=== PATIENT | male | born 1945 | race Caucasian/White ===

== ENCOUNTER 2025-02-20 09:47 | Inpatient (IN) | payer MEDICARE, OTHER, SELFPAY ==
--- NOTE | 2025-02-01 15:28 | CM ---
Demographics: Confirmed
Living situation: lives two story home with
Support Person Post Operatively:
History of
VN: No
SNF: No
Outpatient: Encouraged patient to make appointment for 02/22 at [facility] Outpatient PT
Has patient purchased required equipment: Yes, walker, cane
PCP: confirmed
Pharmacy: [facility] pharmacy
Post Operative Discharge Plan: Home with , Outpatient PT at [facility].
[2025-02-08 13:56] VITALS: BMI 32.3
[2025-02-08 14:14] LABS: Hematocrit 34.9 % (39.0-52.0); Hemoglobin 11.9 g/dL (13.0-18.0); Mean Corp Hgb Conc. 34.1 g/dL (33.0-37.0); Mean Corpuscular Volume 103.3 fL (80.0-94.0); Platelet Count 237 10^3/uL (130-400); Red Cell Dist. Width 12.1 % (11.5-14.5)
[2025-02-08 14:46] LABS: ALT (SGPT) 22 U/L (0-50); AST (SGOT) 24 U/L (17-59); Albumin 4.1 g/dl (3.5-5.0); Alkaline Phosphatase 88 U/L (38-126); Blood Urea Nitrogen 17 mg/dl (9-20); Calcium 10.0 mg/dl (8.4-10.2); Carbon Dioxide 27 mmol/L (22-30); Chloride 105 mmol/L (98-107); Estimated Creatinine Clearance 78 ml/min; Glucose 60 mg/dl (70-99); Potassium 4.3 mmol/L (3.5-5.1); Sodium 140 mmol/L (135-145); Total Protein 6.9 g/dl (6.3-8.2); eGFR > 60.00
[2025-02-08 18:18] VITALS: BMI 32.3
[2025-02-09 09:39] LABS: Glycohemoglobin (HgbA1c) 5.6 % (4.0-5.9)
[2025-02-20] VITALS (11 sets, daily range): BP systolic 97–146; BP diastolic 51–77; PULSE 59–69; O2SAT 98
--- NOTE | 2025-02-20 07:42 | W.PN.UPDATE ---
Update Note
Progress Note Update
R hip OA s/p R ELSIE w/ Dr Huff 02/20/25
DVT prophylaxis - ASA, b/l venous foot pumps
HTN - + parameters - monitor BP
Bifascicular block and PACs, asymptomatic - monitor on tele
JANINA, compliant with CPAP (setting 10) - monitor O2
- IS
- Consider Decadron to aid in lung perfusion
- Continue CPAP HS
NIDDM, A1c 5.6 - monitor BS
- Resume home meds
- Add SSI AC, low dose Lantus HS to accommodate for potential post-surgical BS elevations during admission
- Diabetic, carb controlled diet
- Would benefit from prophylactic abx upon d/c
GERD - add Pepcid HS
BPH - monitor voids
- Continue home Flomax. Will add additional prn dose if urinary retention presents
- Bladder scan/straight cath prn
Mild anemia - non-invasive hgb in AM
HLD
Mild /AR
Colon polyps
Nephrolithiasis
Vertigo
Lumbar degenerative disc disease
Prostate cancer, status post robotic prostatectomy, 2008, and radiation 2018
Obesity, BMI 32.3
Remote history of tobacco abuse
[2025-02-20] MEDS: CELEBREX 200 MG PO (10:04)
[2025-02-20] MEDS: TYLENOL 650 MG PO (10:05)
[2025-02-20 10:17] LABS: Glucose - Point of Care 121 mg/dl (70-99)
[2025-02-20] MEDS: BACTROBAN NASAL 1 GRAM NASAL (10:18)
[2025-02-20] MEDS: NORMOSOL-R/PLASMALYTE-A 1000 IV ×2 (10:18→15:18)
[2025-02-20] MEDS: TYLENOL #3 1 TABLET PO ×2 (13:47→17:27)
--- NOTE | 2025-02-20 14:30 | PTCARENOTE ---
Patient admitted from pacu post right total hip arthroplasty.The patient is alert and oriented.They say their pain is a 3 out of 10.Vital signs are stable.the Mepilex dressing is intact without drainage.Both physical therapy and occupational therapy
are in the room starting to work with the patient.The patient is in his bed with the call hamilton in place.
[2025-02-20] MEDS: ZESTRIL PO (15:19)
[2025-02-20 16:51] LABS: Glucose - Point of Care 112 mg/dl (70-99)
[2025-02-20] MEDS: ANCEF 5 IV (17:21)
[2025-02-20] MEDS: ACTOS 15 MG PO (17:21)
[2025-02-20] MEDS: ASPIRIN 325 MG PO (17:28)
--- NOTE | 2025-02-20 18:15 | OR.RPT ---
Operative Report
Operative Report
Orthopaedic Surgery Operative Note
DATE OF OPERATION: 02/20/2025
PREOPERATIVE DIAGNOSES: Osteoarthritis, right hip
POSTOPERATIVE DIAGNOSES: Same
OPERATION PERFORMED: Right total hip arthroplasty.
SURGEON: Fran Huff MD
SOLAR MANAGER: Bruno Cordero who assisted with patient positioning and retraction
ANESTHESIA: Spinal
COMPLICATIONS: None.
ESTIMATED BLOOD LOSS: 50 mL.
DRAINS: None
SPECIMEN: None
FINDINGS: Advanced articular cartilage wear on the femoral head and acetabulum.
IMPLANTS:
Biomet G7 Acetabular Shell, cluster hole, size 52
Biomet G7 Highly Crosslinked PE Liner, neutral
Guzman M/L Taper femoral stem, size 13.5 with standard neck length and extended
Biolox Ceramic Head, size 36mm +0
INDICATIONS: The patient presented to my office with debilitating right hip pain due to osteoarthritis. We reviewed the natural history of this problem, as well as the risks, benefits, and alternatives of various treatment options. The patient
exhausted all nonoperative treatment options and wished to proceed with hip replacement surgery. The patient understood the risks which included, but were not limited to, bleeding, infection, failure to relieve pain, more pain than preop, damage to
blood vessels and nerves, need for reoperation, mechanical failure of the implants, wound healing problems, stiffness, instability, blood clot, pulmonary embolism, myocardial infarction, pneumonia, arrhythmia, CVA, and . The patient accepted
these risks and wished to proceed. All questions were answered, and informed consent was obtained.
PROCEDURE IN DETAIL: The patient was identified in the preoperative holding area. The right hip was identified as the operative site. The patient was taken in the operating room and transferred to the operative table. Spinal anesthesia was
performed. IV antibiotics and tranexamic acid were administered. The patient was placed in the lateral position with Stulberg hip positioners. Axillary roll was placed. The down leg was well padded. All bony prominences were well padded. The
operative limb was prepped and draped in the usual sterile fashion.
Time out was performed. A posterolateral approach to the hip was used. The skin incision was centered over the greater trochanter. This was taken down sharply through subcutaneous tissues. Meticulous hemostasis was achieved throughout the case with
electrocautery. We split the fascia jennyfer in line with skin incision. I split the gluteus lance bluntly. We cauterized all crossing vessels as we split it. I palpated the sciatic nerve and made sure it was well posterior in the operative field. It
was protected throughout the case.
I performed a partial bursectomy to identify the short external rotators. The gluteus medius and minimus were identified and retracted anteriorly. I incised the piriformis tendon and conjoint tendon at their insertions. These were tagged for later
repair. I then performed a trapezoidal capsulotomy. The edges were tagged for later repair. I referenced the cut edge of the capsular flap to 2 fixed points on the greater trochanter for assistance with recreation of limb length and offset. I then
dislocated the hip posteriorly. I performed a femoral neck osteotomy approximately 5 mm above the lesser trochanter, as per preoperative templating. The femoral head measured 46 mm in outer diameter. The distance between neck cut and the center of
femoral head was 35mm. I placed a curve hohmann retractor over the anterior lip of the acetabulum between the labrum and the anterior hip capsule. A second retractor was placed inferiorly just distal to the transverse acetabular ligament.
Circumferential view of the acetabulum was achieved. I incised the labrum and pulvinar with electrocautery. I started with a 47 mm reamer and reamed down to the medial wall. I then sequentially reamed up to a 51mm reamer. This gave a nice bed of
bleeding bone with excellent column support anteriorly and posteriorly. I impacted the acetabular shell in approximately 40 degrees of abduction and 20 degrees of anteversion. I matched the anteversion of the transverse acetabular ligament. I also
made sure that the anterior rim of the socket was not proud of the anterior wall to minimize the chance of iliopsoas tendinitis. I confirmed the cup was well-seated. I then impacted a neutral liner and confirmed it was well seated with the locking
mechanism.
On the femoral side, I use a box osteotome to open the proximal starting point. I found the canal with a Charnley awl and a lateralizing reamer. I then used the Guzman M/L taper broaches sequentially to prepare the femoral canal. The size 13.5 came
to a stop at the desired level and had excellent axial and rotational stability. We trialed with a trial ball head. The hip was taken through a complete range of motion. It was noted to be stable in extension without impingement. It was stable in
the position of sleep and in flexion with internal rotation. The limb length and offset were checked compared to the capsular flap and was appropriate. The measured length between the neck cut and center of the trial femoral head was 37.5mm.
I removed the trials. I impacted the femoral implant to match the [place] version. It had excellent axial and rotational stability. Trial ball head was placed, and I reduced the hip and took the hip through range of motion. There was no impingement
in external rotation and extension. Position of sleep was stable. At 90 degrees of flexion and slight adduction, the hip could be internally rotated to 90 degrees with no subluxation. I palpated the sciatic nerve, which was tension free and
unharmed. Based on our capsular flap measurement, we had restored the offset and leg length. The trial ball head was removed, and the final ball head was impacted onto a clean and dry Macias taper. The hip was reduced.
A dilute betadine soak was performed for approximately 3 minutes, and then the hip was copiously irrigated. I repaired the capsule, piriformis, and conjoint tendon with #2 Ethibond to drill holes in the greater trochanter. Local anesthetic was
injected. The fascia jennyfer was closed with #1 PDS in running fashion. The subcutaneous tissues were closed with 2-0 monofilament in running fashion. The skin was reapproximated with 3-0 monofilament subcuticular suture. I placed a skin glue dressing
followed by a Mepilex Ag dressing. The patient awoke from anesthesia without difficulty. Sponge and instrument counts were correct x2 at the end of the case.
Naresh Huff MD
[2025-02-20] MEDS: COLACE 100 MG PO (20:50)
[2025-02-20] MEDS: FLOMAX 0.4 MG PO (20:50)
[2025-02-20] MEDS: BACTROBAN 2% OINTMENT 1 APPLIC NASAL (20:50)
[2025-02-20] MEDS: SENOKOT 17.2 MG PO (20:50)
[2025-02-20] MEDS: FLORASTOR 250 MG PO (20:50)
[2025-02-20] MEDS: PEPCID 20 MG PO (20:51)
[2025-02-20] MEDS: TORADOL 10 MG IV (20:51)
[2025-02-20] MEDS: NEURONTIN 300 MG PO (20:51)
[2025-02-20] MEDS: CASODEX 50 MG PO (20:51)
[2025-02-20 21:03] LABS: Glucose - Point of Care 188 mg/dl (70-99)
[2025-02-20] MEDS: TYLENOL #3 2 TABLET PO (21:54)
[2025-02-21] MEDS: ANCEF 5 IV (02:08)
[2025-02-21 03:20] VITALS: BP 110/56
[2025-02-21 07:33] LABS: Glucose - Point of Care 103 mg/dl (70-99)
[2025-02-21 07:40] VITALS: BP 113/59
[2025-02-21] MEDS: ASPIRIN 325 MG PO (09:18)
[2025-02-21] MEDS: CELEBREX 200 MG PO (09:18)
[2025-02-21] MEDS: SENOKOT 17.2 MG PO (09:18)
[2025-02-21] MEDS: LIDOCAINE 4% PATCH 2 PATCH TOPICAL (09:19)
[2025-02-21] MEDS: GLUCOTROL 10 MG PO (09:19)
[2025-02-21] MEDS: ACTOS 15 MG PO (09:19)
[2025-02-21] MEDS: FLORASTOR 250 MG PO (09:19)
[2025-02-21] MEDS: BACTROBAN 2% OINTMENT 1 APPLIC NASAL (09:19)
[2025-02-21] MEDS: COLACE 100 MG PO (09:19)
[2025-02-21] MEDS: ZESTRIL 5 MG PO (09:20)
[2025-02-21] MEDS: TYLENOL #3 1 TABLET PO (09:28)
--- NOTE | 2025-02-21 09:30 | W.PN.ORTHO ---
Today's Communication / Plan
-
Await PT and OT recs.
D/c later today if remaining clinically stable.
Assessment
.
Distal Motor Intact: Yes
Dressing:
Clean, dry and intact.
Assessment:
R hip OA s/p Nai ZIMMERMAN w/ Dr Huff 02/20/25
DVT prophylaxis - ASA, b/l venous foot pumps
HTN - + parameters - BPs overall stable
Bifascicular block and PACs, asymptomatic - rhythm stable on tele
JANINA, compliant with CPAP (setting 10) - O2 stable on RA by POD 1
- IS
- Consider Decadron to aid in lung perfusion
- Continue CPAP HS
NIDDM, A1c 5.6 - BS readings initially elevated 2* surgical stress, IV Decadron in OR; however, BS readings are showing improvement w/ measures below
- Resumed home meds
- Added SSI AC, low dose Lantus HS to accommodate for potential post-surgical BS elevations during admission
- Diabetic, carb controlled diet
- Would benefit from prophylactic abx upon d/c
GERD - added Pepcid HS
BPH - voiding appropriately by POD 1
- Continue home Flomax. Will add additional prn dose if urinary retention presents
- Bladder scan/straight cath prn
Mild pre-op anemia - non-invasive hgb 12.9 POD 1
HLD
Mild /AR
Colon polyps
Nephrolithiasis
Vertigo
Lumbar degenerative disc disease
Prostate cancer, status post robotic prostatectomy, 2008, and radiation 2018
Obesity, BMI 32.3
Remote history of tobacco abuse
Plan
.
Surgery / Date: Nai delarosa/ Dr Huff 02/20/25
DVT Prophylaxis: Aspirin
Activity:
Out of bed.
PT/OT
Discharge Plan: Home w/ Outpatient PT
Subjective
.
.:
Patient resting comfortably in his chair.
R hip pain well controlled w/ current pain meds.
Denies any new significant complaints.
Eager for potential d/c today.
Vital Signs and Labs
.
Vital Signs and Labs:
Lab Results
02/08/25 12:19
02/08/25 12:19
Temp Pulse Resp BP Pulse Ox
98 F 79 18 129/59 95
02/21/25 07:40 02/21/25 09:20 02/21/25 07:40 02/21/25 09:20 02/21/25 07:40
Non-invasive Hgb result: 12.9
Physical Exam
-
HEENT: No pallor, cyanosis, or jaundice. Throat clear.
NECK: Supple. No JVD.
RESPIRATORY: Lungs clear to auscultation.
CVS: S1, S2 normal. RRR.�
ABDOMEN: Soft, non-tender. No distension. Obese.
EXTREMITIES: Strength equal, no calf pain with palpation/dorsiflexion. Calves soft.
BID WRITER: AOx3. No focal deficits. brake tester grossly intact
--- NOTE | 2025-02-21 09:50 | W.DS.TRANS ---
DC Summary - Artificial Limb Maker
-
Discharge Instructions:
Discharge Diagnosis/Procedures R hip OA s/p R ELSIE w/ Dr Huff 02/20/25
Diet Diabetic, Carb Controlled
Additional Diets Adequate hydration, minimize opioids, and wear
TEDs stockings to prevent low blood pressure/
dizziness.
Activity As tolerated,With Walker
Driving Restrictions Not until seen by your Dr
Bathing Restrictions OK to Shower
Other Services PT,OT,VN
Wound Care Leave dressing on until seen by surgeon's office
for follow-up.
Instructions:
Stand-Alone Forms: Total Hip/Knee Replacement D/C
Changes to Home Medications: Yes
Discharge Medications:
DC Medications w/original date entered in [facility]
bicalutamide 50 mg tablet 50 mg PO HS 02/06/25
glipizide 10 mg tablet 10 mg PO DAILY 02/06/25
pioglitazone 15 mg tablet 15 mg PO DAILY 02/06/25
tamsulosin 0.4 mg capsule 0.4 mg PO HS 02/06/25
mupirocin 2 % topical ointment 1 applic intranasal BID #1 tube 02/08/25
acetaminophen 300 mg-codeine 30 mg tablet 1 - 2 tab PO Q6H PRN moderate-severe pain #30 tabs 02/14/25
celecoxib 200 mg capsule (Celebrex) 200 mg PO DAILY #14 caps 02/14/25
doxycycline monohydrate 100 mg capsule 100 mg PO BID #14 caps 02/14/25
famotidine 20 mg tablet (Pepcid) 20 mg PO HS #30 tabs 02/14/25
gabapentin 300 mg capsule 300 mg PO HS neuropathic pain/sleep #10 caps 02/14/25
ondansetron HCl 4 mg tablet 4 mg PO Q6H PRN nausea and vomiting #30 tabs 02/14/25
Saccharomyces boulardii 250 mg capsule (Florastor) 250 mg PO BID #14 caps 02/21/25
acetaminophen 325 mg tablet 650 mg (2 x 325 mg) PO Q6HPRN PRN mild pain #60 tabs 02/21/25
aspirin 325 mg tablet 325 mg PO DAILY #30 tabs 02/21/25
docusate sodium 100 mg capsule 100 mg PO BID #30 caps 02/21/25
lidocaine 4 % topical patch 2 patch topical DAILY #30 ea 02/21/25
lisinopril 5 mg tablet 5 mg PO DAILY #1 tab 02/21/25
magnesium hydroxide 400 mg/5 mL oral suspension (Milk of Magnesia) 30 ml PO HS PRN constipation #3,780 mL 02/21/25
sennosides 8.6 mg tablet (Celine-ileana) 17.2 mg (2 x 8.6 mg) PO BID #30 tabs 02/21/25
Home Medication Changes
acetaminophen 300 mg-codeine 30 mg tablet 1 - 2 tab PO Q6H PRN moderate-severe pain #30 tabs 02/14/25
celecoxib 200 mg capsule (Celebrex) 200 mg PO DAILY #14 caps 02/14/25
doxycycline monohydrate 100 mg capsule 100 mg PO BID #14 caps 02/14/25
famotidine 20 mg tablet (Pepcid) 20 mg PO HS #30 tabs 02/14/25
gabapentin 300 mg capsule 300 mg PO HS neuropathic pain/sleep #10 caps 02/14/25
ondansetron HCl 4 mg tablet 4 mg PO Q6H PRN nausea and vomiting #30 tabs 02/14/25
Saccharomyces boulardii 250 mg capsule (Florastor) 250 mg PO BID #14 caps 02/21/25
acetaminophen 325 mg tablet 650 mg (2 x 325 mg) PO Q6HPRN PRN mild pain #60 tabs 02/21/25
aspirin 325 mg tablet 325 mg PO DAILY #30 tabs 02/21/25
docusate sodium 100 mg capsule 100 mg PO BID #30 caps 02/21/25
lidocaine 4 % topical patch 2 patch topical DAILY #30 ea 02/21/25
magnesium hydroxide 400 mg/5 mL oral suspension (Milk of Magnesia) 30 ml PO HS PRN constipation #3,780 mL 02/21/25
sennosides 8.6 mg tablet (Celine-ileana) 17.2 mg (2 x 8.6 mg) PO BID #30 tabs 02/21/25
Pending Results: No
--- NOTE | 2025-02-21 09:55 | CM ---
Addendum entered by Kiya Salinas RN 02/21/25 11:56:
Patient referred to to [facility].
PLAN: VN
Original Note:
Cm met with patient in room. Patient confirmed demographics. Patient confirmed appointment. Patient's daughter will provide transportation.
PLAN: home with outpatient PT.
[2025-02-21 12:10] VITALS: BP 121/78
[2025-02-21 12:12] VITALS: BP 121/78; PULSE 82; O2SAT 96
--- NOTE | 2025-02-21 12:13 | VNURNOTE ---
Home Health Liaison spoke with patient to discuss [facility] therapy, visits, schedule. Patient is agreeable and understands that visits at home will be 2-3 x per week for therapy. Patient is aware that [facility] will contact them for start of care
within a few days after discharge from .
[facility] referral completed in [facility].
[2025-02-21 13:06] LABS: Glucose - Point of Care 128 mg/dl (70-99)
== END 2025-02-21 15:02 | disposition home or self-care (01) | DRG 470 ==
LOC: 2 SOUTH 09:47
PROVIDERS: ADMITTING PHYSICIAN Orthopaedic Surgery; FAMILY PHYSICIAN Family Medicine; REFERRING PHYSICIAN Internal Medicine Cardiovascular Disease
PROC: 0SR903A Replacement of Right Hip Joint with Ceramic Synthetic Substitute, Uncemented, Open Approach (ICD-10-PCS; 2025-02-20)
DX: M16.11 Unilateral primary osteoarthritis, right hip (principal); I45.2 Bifascicular block; I10 Essential (primary) hypertension; G47.33 Obstructive sleep apnea (adult) (pediatric); Z79.84 Long term (current) use of oral hypoglycemic drugs; E11.9 Type 2 diabetes mellitus without complications; K21.9 Gastro-esophageal reflux disease without esophagitis; N40.0 Benign prostatic hyperplasia without lower urinary tract symptoms; Z79.4 Long term (current) use of insulin; Z87.891 Personal history of nicotine dependence
CPT/HCPCS: 36415; 73502; 80053; 82962; 83036; 85027; 86850; 86900; 86901; 87070; 97110; 97116; 97163; 97166; 97530; 97535; C1776

== ENCOUNTER 2025-02-22 17:01 | Emergency (ER) | payer MEDICARE, OTHER, SELFPAY ==
[2025-02-22 17:13] VITALS: BP 99/55
--- NOTE | 2025-02-22 18:06 | ED.SKININJ ---
HPI-Injury
General
Chief Complaint: Wound Check/Suture Removal
Source: patient
Exam Limitations: none
Time Seen by Provider: 02/22/25 17:57
History of Present Illness-Injury
Initial Injury comments:
79-year-old male presents for evaluation of right hip wound. He had hip replacement surgery 2 days ago. His accidentally removed his silicone postoperative bandage last evening. Since then he has had a piece of tape over it. He called the
orthopedic office and they advised him to come here for redressing of the wound. He has no other complaints
Phy Exam
Physical Exam
Physical Exam:
General: Well-appearing male no acute distress
HEENT: Normal cephalic
Extremities: No cyanosis
Course
Vital Signs
Initial and Last Documented VS:
Initial Vital Signs
Temp Pulse Resp BP Pulse Ox
98.6 F 97 16 99/55 98
02/22/25 17:13 02/22/25 17:13 02/22/25 17:13 02/22/25 17:13 02/22/25 17:13
Last Documented Vital Signs
Temp Pulse Resp BP Pulse Ox
98.6 F 97 16 99/55 98
02/22/25 17:13 02/22/25 17:13 02/22/25 17:13 02/22/25 17:13 02/22/25 17:13
MDM/Problems Addressed
Differential Diagnosis Includes:
Patient unintentionally remove the wrong dressing off of his right hip. Will call down to the OR for postoperative dressing that he needs. The skin will be cleaned and the dressing will be reapplied
*Pulse Oximetry
SaO2: 98
Oxygen Mode of Delivery: Room air
Patient hypoxic: no
*Critical Care Note
Total Time (30-74mins, 75-104mins- exclusive of procedures): Not Applicable
ED Attending Note
-
Portions of this chart may have been created with voice recognition software.� Occasional wrong word or��sound alike� substitutions may have occurred due to the inherent limitations of voice recognition software.
Discharge Plan
Departure
Patient Disposition: Home (Routine Discharge)
Date of Disposition: 02/22/25
Time of Disposition: 18:08
Patient with high blood pressure during this ER visit?: No
Discharge Problem:
Encounter for wound care
Instructions: Wound Care (DC)
Prescriptions:
No Action
pioglitazone 15 mg Tablet
15 mg PO DAILY
bicalutamide 50 mg Tablet
50 mg PO HS
glipizide 10 mg Tablet
10 mg PO DAILY
tamsulosin 0.4 mg Capsule
0.4 mg PO HS
mupirocin 2 % ointment
1 applic intranasal BID Qty: 1 0RF
Patient Comments:
last dose was this am
acetaminophen-codeine 300-30 mg tablet
1 - 2 tab PO Q6H PRN (Reason: moderate-severe pain) Qty: 30 0RF
Rx Instructions:
1 tab for moderate pain, 2 if severe.
Dx total joint
ondansetron HCl 4 mg tablet
4 mg PO Q6H PRN (Reason: nausea and vomiting) Qty: 30 0RF
celecoxib [Celebrex] 200 mg capsule
200 mg PO DAILY Qty: 14 0RF
Rx Instructions:
Take with food post-surgery.
DO NOT take within 2 hours of Aspirin.
gabapentin 300 mg capsule
300 mg PO HS Qty: 10 0RF
Rx Instructions:
For post-surgical use.
doxycycline monohydrate 100 mg capsule
100 mg PO BID Qty: 14 0RF
Rx Instructions:
Start night of discharge and continue twice a day until finished.
Take with probiotic.
famotidine [Pepcid] 20 mg tablet
20 mg PO HS Qty: 30 0RF
Rx Instructions:
Take nightly while on post-surgical pain meds to reduce GI upset.
aspirin 325 mg Tablet
325 mg PO DAILY Qty: 30 0RF
Rx Instructions:
Take daily x4 weeks for blood clot prevention; then resume Aspirin 81 mg daily.
lidocaine 4 % Adhesive Patch,Medicated
2 patch topical DAILY Qty: 30 0RF
Rx Instructions:
Over the counter. 12 hours on, 12 hours off.
Apply to sides of right hip/thigh.
docusate sodium 100 mg Capsule
100 mg PO BID Qty: 30 0RF
sennosides [Celine-ileana] 8.6 mg Tablet
17.2 mg PO BID Qty: 30 0RF
magnesium hydroxide [Milk of Magnesia] 400 mg/5 mL suspension
30 ml PO HS PRN (Reason: constipation) Qty: 3780 0RF
Rx Instructions:
Add to bowel regimen of Colace and Senna should no bowel movement occur within 48-72 hours post-surgery.
Saccharomyces boulardii [Florastor] 250 mg capsule
250 mg PO BID Qty: 14 0RF
Rx Instructions:
Over the counter. Take while on antibiotic.
If unavailable, choose a different probiotic.
acetaminophen 325 mg Tablet
650 mg PO Q6HPRN PRN (Reason: mild pain) Qty: 60 0RF
Rx Instructions:
DO NOT exceed >4000 mg daily while on Tylenol with Codeine.
1 Tylenol with Codeine = 300 mg of Tylenol.
lisinopril 5 mg Tablet
5 mg PO DAILY Qty: 1 0RF
Rx Instructions:
HOLD IF systolic blood pressure <130 while on post-surgical narcotics.
Referrals:
Ryan Kilgore MD [Family Provider, Family Practice]
Activity Restrictions/Additional Instructions:
Continue to follow-up with orthopedics as planned. Return if needed.
Interventions
Interventions:
*Risk Screen - Suicide Last Done: 02/22/25 17:13
Discharge Date and Time
Print Language: MAORI
== END 2025-02-22 19:28 | disposition home or self-care (01) ==
LOC: EMR 17:01
PROVIDERS: EMERGENCY PHYSICIAN Emergency Medicine; FAMILY PHYSICIAN Family Medicine
DX: Z48.01 Encounter for change or removal of surgical wound dressing (principal)
CPT/HCPCS: 99282